=== PATIENT | male | born 2000 | race African-American/Black ===

== ENCOUNTER 2021-04-06 11:34 | Emergency (ER) | payer OTHER ==
[~2021-04-06] VITALS: Ht 170.2 cm; Wt 81.8 kg
[2021-04-06 14:12] LABS: BASO % 0.4 % (0.0-1.0); EOS # 0.4 10^3/uL (0.0-0.5); EOS % 4.4 % (0.0-3.0); HEMATOCRIT 48.9 % (42.0-52.0); HEMOGLOBIN 16.4 g/dl (13.5-17.5); LYMPH # 2.3 10^3/uL (1.5-5.0); LYMPH % 23.8 % (24.0-44.0); MEAN CORPUSCULAR HEMOGLOBIN 28.7 pg (27.0-33.0); MEAN CORPUSCULAR HGB CONC 33.5 g/dl (32.0-36.5); MEAN CORPUSCULAR VOLUME 85.6 fl (80.0-96.0); MONO # 0.9 10^3/uL (0.0-0.8); MONO % 9.1 % (2.0-8.0); NEUTROPHILS # 5.8 10^3/uL (1.5-8.5); NEUTROPHILS % 61.8 % (36.0-66.0); PLATELET COUNT, AUTOMATED 240 10^3/uL (150-450); RED BLOOD COUNT 5.71 10^6/uL (4.30-6.10); WHITE BLOOD COUNT 9.5 10^3/uL (4.0-10.0)
[2021-04-06 14:26] LABS: ALBUMIN 4.3 GM/DL (3.2-5.2); ALT/SGPT 29 U/L (12-78); BILIRUBIN,DIRECT 0.1 MG/DL (0.0-0.2); BILIRUBIN,TOTAL 0.6 MG/DL (0.2-1.0); BLOOD UREA NITROGEN 14 MG/DL (7-18); CALCIUM LEVEL 9.3 MG/DL (8.5-10.1); CARBON DIOXIDE LEVEL 32 MEQ/L (21-32); CHLORIDE LEVEL 105 MEQ/L (98-107); CREATININE FOR GFR 1.13 MG/DL (0.70-1.30); GLOMERULAR FILTRATION RATE > 60.0 (>60); GLUCOSE, FASTING 80 MG/DL (70-100); LIPASE 108 U/L (73-393); POTASSIUM SERUM 4.2 MEQ/L (3.5-5.1); SODIUM LEVEL 141 MEQ/L (136-145); TOTAL PROTEIN 7.9 GM/DL (6.4-8.2)
[2021-04-06] MEDS ORDERED: ONDANSETRON 4 MG ORAL DISINTEGRATING TAB PO ONE (15:00)
[2021-04-06] MEDS ORDERED: ZOFR4TAB16 PO (16:04)
[2021-04-06 16:09] VITALS: BP 117/55
== END 2021-04-06 16:11 | disposition home or self-care (01) ==
LOC: M ED 11:34
DX: R11.2 Nausea with vomiting, unspecified (principal)
CPT/HCPCS: 36415; 80048; 80076; 83690; 85025; 87804; 99284; Q0162

== ENCOUNTER 2021-06-23 05:59 | Emergency (ER) | payer OTHER ==
[~2021-06-23] VITALS: Ht 175.3 cm; Wt 85.5 kg
[~2021-06-23 05:59] MED LIST: ZOFR4TAB16 PO
[2021-06-23] MEDS ORDERED: ONDANSETRON 4MG/2ML VIAL IV ONE (07:15)
[2021-06-23] MEDS ORDERED: KETOROLAC 30 MG/ML 1ML VIAL IV ONE (07:15)
[2021-06-23] MEDS ORDERED: NS 1,000 ML IV ONE (07:15)
[2021-06-23] MEDS ORDERED: ISOVUE-370 76% 100ML VIAL As Ordered ONE (07:23)
[2021-06-23 07:42] LABS: BASO % 0.3 % (0.0-1.0); EOS # 0.1 10^3/uL (0.0-0.5); HEMATOCRIT 50.1 % (42.0-52.0); HEMOGLOBIN 17.5 g/dl (13.5-17.5); LYMPH # 2.3 10^3/uL (1.5-5.0); LYMPH % 24.6 % (24.0-44.0); MEAN CORPUSCULAR HGB CONC 34.9 g/dl (32.0-36.5); MEAN CORPUSCULAR VOLUME 82.9 fl (80.0-96.0); MONO # 1.2 10^3/uL (0.0-0.8); MONO % 12.3 % (2.0-8.0); NEUTROPHILS # 5.7 10^3/uL (1.5-8.5); NEUTROPHILS % 61.4 % (36.0-66.0); PLATELET COUNT, AUTOMATED 258 10^3/uL (150-450); RED BLOOD COUNT 6.04 10^6/uL (4.30-6.10); WHITE BLOOD COUNT 9.4 10^3/uL (4.0-10.0)
--- NOTE | 2021-06-23 08:33 | REP ---
INDICATION: central abdominal main. COMPARISON: None. TECHNIQUE: Helical scanning was acquired and 4 mm axial images are re-formatted. Coronal and sagittal MPR images were generated and reviewed. The contrast enhancement dose is 100 mL of intravenous Isovue 370. 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 There is some formed stool in the right colon. On axial CT images at lung window settings,. The liver is normal in size homogeneous in texture. The spleen is homogeneous in texture and unremarkable. No abnormality is noted in the pancreas or the gallbladder. Normal adrenal glands are observed bilaterally. Kidneys enhance symmetrically and are morphologically intact. No retroperitoneal mass or adenopathy is seen. There are 3 normal-sized cyst mesenteric lymph nodes in the right lower quadrant. No mesenteric adenopathy is seen. A very short noninflamed appendix is seen. Air-filled small bowel loops are noted throughout the abdomen. No obstructive lesion is seen. No evidence of free air or abnormal peritoneal fluid collection. There is some formed stool in the cecum and ascending colon. The colon is otherwise largely empty. No abdominal wall defect is seen. There is a bone island in the right proximal femur. No bony destructive lesion. IMPRESSION: Air-filled small bowel loops throughout the abdomen consistent with mild ileus pattern. No obstructive lesion seen. Otherwise negative CT study abdomen and pelvis. Tiny noninflamed appendix is seen. <Electronically signed by Lupillo Frank > 06/23/21 0814
[2021-06-23 08:56] LABS: ALBUMIN 4.7 GM/DL (3.2-5.2); BILIRUBIN,DIRECT 0.3 MG/DL (0.0-0.2); BILIRUBIN,TOTAL 1.1 MG/DL (0.2-1.0); TOTAL PROTEIN 8.6 GM/DL (6.4-8.2)
[2021-06-23] MEDS ORDERED: ZOFR4TAB16 PO (09:21)
[2021-06-23 09:44] VITALS: BP 168/95
== END 2021-06-23 09:48 | disposition home or self-care (01) ==
LOC: M ED 05:59
DX: K52.9 Noninfective gastroenteritis and colitis, unspecified (principal); K29.70 Gastritis, unspecified, without bleeding; K42.9 Umbilical hernia without obstruction or gangrene; B36.0 Pityriasis versicolor; Z98.890 Other specified postprocedural states
CPT/HCPCS: 74177; 80047; 80076; 81001; 83690; 85025; 96374; 96375; 99284; J1885; J2405; Q9967

== ENCOUNTER 2021-07-05 19:15 | Emergency (ER) | payer OTHER ==
[~2021-07-05] VITALS: Ht 175.3 cm; Wt 86.6 kg
[2021-07-05 19:15] VITALS: BP 140/84
[2021-07-05 21:27] LABS: RSV AMPLIFICATION NEGATIVE (NEGATIVE)
== END 2021-07-05 21:22 | disposition home or self-care (01) ==
LOC: M ED 19:15
DX: R05 Cough (principal); Z20.822 Contact with and (suspected) exposure to COVID-19